=== PATIENT | male | born 1970 | race Caucasian/White ===

== ENCOUNTER 2023-03-02 12:19 | Day surgery (SDC) | payer OTHER ==
[~2023-03-02] VITALS: Ht 177.8 cm; Wt 95.6 kg
[2023-03-02] MEDS ORDERED: INSULANI (13:09)
[2023-03-02] MEDS ORDERED: OMEGA-3 + VITA200 ML (13:09)
[2023-03-02] MEDS ORDERED: METF500 (13:09)
[2023-03-02 15:02] VITALS: BP 116/77
== END 2023-03-02 15:02 | disposition home or self-care (01) ==
LOC: ORSCSDS 12:19
PROVIDERS: Specialist
PROC: 0DBL8ZX Excision of Transverse Colon, Via Natural or Artificial Opening Endoscopic, Diagnostic (ICD-10-PCS; principal; 2023-03-02 13:45)
PROC: 0DBP8ZX Excision of Rectum, Via Natural or Artificial Opening Endoscopic, Diagnostic (ICD-10-PCS; principal; 2023-03-02 13:45)
PROC: 0DBK8ZX Excision of Ascending Colon, Via Natural or Artificial Opening Endoscopic, Diagnostic (ICD-10-PCS; principal; 2023-03-02 13:45)
DX: K92.1 Melena (principal); Z86.010 Personal history of colon polyps; D12.2 Benign neoplasm of ascending colon; K63.5 Polyp of colon; K62.1 Rectal polyp; K64.8 Other hemorrhoids; K57.30 Diverticulosis of large intestine without perforation or abscess without bleeding; E11.9 Type 2 diabetes mellitus without complications; K75.81 Nonalcoholic steatohepatitis (NASH); E78.1 Pure hyperglyceridemia; Z79.4 Long term (current) use of insulin; Z79.84 Long term (current) use of oral hypoglycemic drugs
CPT/HCPCS: 82947; 88305; J2704; J7120

== ENCOUNTER 2024-12-06 14:27 | Inpatient (IN) | payer OTHER ==
[~2024-12-06] VITALS: Ht 180.3 cm; Wt 91.5 kg
[2024-12-06] VITALS (9 sets, daily range): BP systolic 104–135; BP diastolic 60–84
[~2024-12-06 14:27] MED LIST: INSULANI; METF500; OMEGA-3 + VITA200 ML
[2024-12-06] MEDS ORDERED: Rocuronium Bromide 10 MG/ML 5ML Injection IV ONE (14:44)
[2024-12-06] MEDS ORDERED: Phenylephrine HCl 100 MCG/ML-NS 10MLSYR (1MG/10ML) IV ONE (14:44)
[2024-12-06] MEDS ORDERED: Propofol 10mg/ml 20 ml Vial (Procedural) IV ONE (14:44)
[2024-12-06 15:09] LABS: Hematocrit 42.4 % (37.0-53.0); Hemoglobin 15.3 g/dL (13.5-17.5); Mean Corpuscular HGB 31.5 pg (26.0-34.0); Mean Corpuscular HGB Conc 36.1 g/dL (31.5-36.5); Mean Corpuscular Volume 87 fL (80-100); Mean Platelet Volume 10.1 fL (9.1-12.4); Platelet Count 83 K/mm3 (150-400); RDW Standard Deviation 38.5 fL (35.1-46.3); Red Blood Cell Count 4.85 M/mm3 (4.30-5.90); White Blood Cell Count 3.73 K/mm3 (4.00-11.30)
[2024-12-06 15:30] LABS: Albumin, Blood 3.5 g/dL (3.4-5.0); Albumin/Globulin Ratio 0.9 (0.8-1.8); Bilirubin, Total 0.5 mg/dL (0.1-1.0); Calcium, Blood 8.2 mg/dL (8.5-10.1); Creatinine, Blood 0.94 mg/dL (0.60-1.20); Globulin, Blood 4.1 g/dL (2.2-4.0); Potassium, Blood 3.6 mmol/L (3.5-5.5); Total Protein, Blood 7.6 g/dL (6.4-8.2)
[2024-12-06 16:09] LABS: Influenza B, PCR NEGATIVE (NEGATIVE); Resp Syncytial Virus, PCR NEGATIVE (NEGATIVE); SARS-Cov-2 (COVID-19) PCR, MMC NEGATIVE (NEGATIVE)
[2024-12-06 17:07] LABS: BAND PERCENT MAN 6 % (0-8); BASOPHILS PERCENT MAN 0 % (0-2); EOSINOPHILS PERCENT MAN 0 % (0-6); LYMPHOCYTES % ATYPICAL MANUAL 1 % (0-0); LYMPHOCYTES ABSOLUTE MAN 1.11 K/mm3 (0.84-5.20); LYMPHOCYTES PERCENT MAN 29 % (21-46); MONOCYTES ABSOLUTE MAN 0.18 K/mm3 (0.16-1.47); MONOCYTES PERCENT MAN 5 % (4-13); NEUTROPHILS ABSOLUTE MAN 2.42 K/mm3 (1.96-9.15); SEG NEUTROPHILS PERCENT MAN 59 % (41-73); TOTAL CELLS COUNTED 100
[2024-12-06] MEDS ORDERED: NS 1,000 ML IV SCH (18:30)
[2024-12-06] MEDS ORDERED: NS 1,000 ML IV ONE (18:40)
[2024-12-06] MEDS ORDERED: Guaifenesin/Dextromethorphan Syrup 5 ML UDC PO PRN (18:45)
[2024-12-06] MEDS ORDERED: Insulin Glargine-Yfgn 100 Unit/mL 3 ML SYR SC SCH (19:00)
[2024-12-06] MEDS ORDERED: Oseltamivir Phosphate 75 MG Cap PO SCH (19:00)
[2024-12-06 20:13] LABS: PCO2 Arterial 32.2 mmHg (35-45); PO2 Arterial 52.7 mmHg (80-100); pH Blood Arterial 7.53 (7.35-7.45)
[2024-12-06] MEDS ORDERED: CefTRIAXone Sodium 1,000 MG in NS 100 ML IV SCH (20:21)
[2024-12-06] MEDS ORDERED: Vancomycin HCL 2,000 MG in NS 500 ML IV ONE (20:25)
[2024-12-06] MEDS ORDERED: NS 250 ML IV PRN (20:40)
[2024-12-06] MEDS ORDERED: Insulin Human Lispro 100 Units/ML 3ML Syringe SC SCH (21:00)
--- NOTE | 2024-12-06 21:55 | NUR ---
SHIFT SUMMERY PT WAS UNABLE TO MAINTAIN OXYGEN SAT ON AIRVO, RT JOHNNY PLACED PATIENT ON BIPAP AT 100% FIO2. OXYGEN SAT ARE 92% AT THIS TIME.
--- NOTE | 2024-12-06 22:02 | NUR ---
UPDATED PT PER PT REQUEST. APPRECIATIVE OF UPDATE AND CARE PROVIDED.
[2024-12-06] MEDS ORDERED: Ipratropium/Albuterol SulF 2.5-0.5MG/3 ML Amp INH PRN ×2 (22:40→22:45)
[2024-12-06] MEDS ORDERED: Piperacillin/Tazobactam Sod 4.5 GM in NS 100 ML IV SCH (22:56)
[2024-12-06] MEDS ORDERED: MethylPREDNISolone Sod Succ 125 MG Vial IV SCH (23:00)
[2024-12-07] VITALS (36 sets, daily range): BP systolic 97–128; BP diastolic 62–93
[2024-12-07 04:44] LABS: PCO2 Arterial 41.9 mmHg (35-45); PO2 Arterial 59.8 mmHg (80-100); pH Blood Arterial 7.41 (7.35-7.45)
[2024-12-07 05:17] LABS: Hematocrit 36.1 % (37.0-53.0); Hemoglobin 12.9 g/dL (13.5-17.5); Mean Corpuscular HGB 31.9 pg (26.0-34.0); Mean Corpuscular HGB Conc 35.7 g/dL (31.5-36.5); Mean Corpuscular Volume 89 fL (80-100); Mean Platelet Volume 10.5 fL (9.1-12.4); Platelet Count 73 K/mm3 (150-400); RDW Coefficient Variation 12.3 % (11.7-14.2); RDW Standard Deviation 40.6 fL (35.1-46.3); Red Blood Cell Count 4.05 M/mm3 (4.30-5.90); White Blood Cell Count 3.14 K/mm3 (4.00-11.30)
[2024-12-07 05:36] LABS: Albumin, Blood 2.6 g/dL (3.4-5.0); Albumin/Globulin Ratio 0.7 (0.8-1.8); Bilirubin, Total 0.6 mg/dL (0.1-1.0); Bun/Creatinine Ratio 17.1 (12.0-20.0); Calcium, Blood 7.4 mg/dL (8.5-10.1); Creatinine, Blood 0.82 mg/dL (0.60-1.20); Globulin, Blood 3.6 g/dL (2.2-4.0); Magnesium, Blood 2.1 mg/dL (1.6-2.4); Potassium, Blood 3.8 mmol/L (3.5-5.5); Total Protein, Blood 6.2 g/dL (6.4-8.2)
--- NOTE | 2024-12-07 05:49 | NUR ---
SHIFT SUMMERY PT HAS BEEN ALERT AND ORIENTED X 4. HE WAS ADMITTED FROM ER AROUND 2030 LAST NIGHT. QUILES W/GENERALIZED WEAKNESS. HE HAS VOIDED AND HAD A BM. HE WAS INTITALLY ON AIRVO BUT INCREASING OXYGEN DEMANDS REQUIRED HE BE PLACED ON BIPAP. HE HAS NOT BEEN ABLE TO TOLERATE BEING OFF OF THE BIPAP AND DID NOT HAVE A GREAT IMPROVEMENT TO HIS AM ABG. PT WAS EDUCATED ON TREATMENT MODALITIES INCLUDING INTUBATION IF NEEDED. PT HAS BEEN AFEBRILE. BP HAS BEEN WNL, SR ON THE PAPER CONE GRADER. PT IS MAINTAINING OXYGEN SAT ON CURRENT BIPAP SETTING.
[2024-12-07 06:45] LABS: BAND PERCENT MAN 4 % (0-8); BASOPHILS ABSOLUTE MAN 0.03 K/mm3 (0.00-0.23); BASOPHILS PERCENT MAN 1 % (0-2); EOSINOPHILS PERCENT MAN 0 % (0-6); LYMPHOCYTES ABSOLUTE MAN 0.62 K/mm3 (0.84-5.20); LYMPHOCYTES PERCENT MAN 20 % (21-46); MONOCYTES ABSOLUTE MAN 0.06 K/mm3 (0.16-1.47); MONOCYTES PERCENT MAN 2 % (4-13); NEUTROPHILS ABSOLUTE MAN 2.41 K/mm3 (1.96-9.15); SEG NEUTROPHILS PERCENT MAN 73 % (41-73); TOTAL CELLS COUNTED 100
[2024-12-07] MEDS ORDERED: Enoxaparin 40 MG/0.4 ML SYR SC SCH (09:00)
--- NOTE | 2024-12-07 09:23 | NUR ---
AM NOTE... ASSUMED CARE OF PT AT 0700, PT IS A&Ox4, PT IS IS SR IN THE 70'S BP IS STABLE WITH MAPS>65. L/S ARE CLEAR AND DIM T/O VERY DIM IN THE BASES. PT IS ON BPAP AT 14/8 AND 75% WITH O2 SATS>90%. NO SWELLING OR EDEMA IS NOTED. BT PRESENT AND HYPOACTIVE ABD IS SOFT AND NONTENDER TO PALPATION. AT 0845 DR. RAMOS WAS AT THE BEDSIDE TO ASSESS THE PT, AT 0850 BIPAP SETTINGS WERE CHANGED TO 12/7 AND 75% FIO2 PT TOLERATED THIS CHANGE WELL AT 0850 THE PT WAS SWITCHED OVER TO AIRVO 50L AND 85% SO FAR PT IS TOLERATING THE SWITCH WELL. NO CHANGE IN HIS WORK OF BREATHING OR RR.
[2024-12-07] MEDS ORDERED: Vancomycin HCL 1,250 MG in NS 250 ML IV SCH (10:00)
--- NOTE | 2024-12-07 11:06 | NUR ---
PT UPDATE... AT 1027 PT'S AIRVO SETTINGS WERE INCREASED FROM 50L AND 90% TO 60L AND 90% WITH O2 SATS>89%. PT IS TOLERATING THESE SETTINGS WELL SO FAR.
[2024-12-07 11:32] LABS: Triglycerides 279 mg/dL (30-160)
[2024-12-07] MEDS ORDERED: Insulin Human Lispro 100 Units/ML 3ML Syringe SC SCH (17:25)
--- NOTE | 2024-12-07 18:47 | NUR ---
SHIFT SUMMARY... PT HAS BEEN ON THE AIRVO MOST OF THIS SHIFT AT 60L AND 90% WITH O2 SATS 90-94%. PT WAS ABLE TO GET UP TO THE BSC AND HAVE A BM. HE IS CURRENTLY UP IN THE RECLINER CHAIR, PT'S O2 SATS DROPPED DOWN TO LOW 80'S WITH ACTIVITY BUT IMPROVED WITH REST. PT'S BP AND HR HAVE BEEN STABLE T/O THIS SHIFT.
[2024-12-08] VITALS (63 sets, daily range): BP systolic 76–143; BP diastolic 49–88
[2024-12-08 05:25] LABS: Base Excess Venous 3.9 mmol/L; Bicarbonate Venous 27.2 mmol/L (24.0-30.0); PCO2 Venous 43.9 mmHg (38-42); pH Blood Venous 7.42 (7.34-7.37)
[2024-12-08 05:45] LABS: BASOPHILS ABSOLUTE AUTO 0.01 K/mm3 (0.00-0.23); BASOPHILS PERCENT AUTO 0 % (0-2); EOSINOPHILS PERCENT AUTO 0 % (0-6); Hematocrit 35.6 % (37.0-53.0); Hemoglobin 12.4 g/dL (13.5-17.5); Mean Corpuscular HGB 30.8 pg (26.0-34.0); Mean Corpuscular HGB Conc 34.8 g/dL (31.5-36.5); Mean Corpuscular Volume 88 fL (80-100); Mean Platelet Volume 10.4 fL (9.1-12.4); Platelet Count 99 K/mm3 (150-400); RDW Coefficient Variation 12.2 % (11.7-14.2); RDW Standard Deviation 39.4 fL (35.1-46.3); Red Blood Cell Count 4.03 M/mm3 (4.30-5.90); White Blood Cell Count 5.14 K/mm3 (4.00-11.30)
[2024-12-08 05:49] LABS: IMMATURE GRAN ABSOLUTE AUTO 0.03 K/mm3 (0.00-0.10); IMMATURE GRAN PERCENT AUTO 1 % (0-1); LYMPHOCYTES ABSOLUTE AUTO 1.17 K/mm3 (0.84-5.20); LYMPHOCYTES PERCENT AUTO 23 % (21-46); MONOCYTES ABSOLUTE AUTO 0.47 K/mm3 (0.16-1.47); MONOCYTES PERCENT AUTO 9 % (4-13); NEUTROPHILS ABSOLUTE AUTO 3.46 K/mm3 (1.96-9.15); NEUTROPHILS PERCENT AUTO 67 % (41-73)
--- NOTE | 2024-12-08 06:00 | NUR ---
PT HAS HAD AN UNEVENTFUL NIGHT. HE HAS REMAINED ON AIRVO W/OXYGEN SATURATIONS REMAINING GREATER THAN 90%. HE IS ALERT AND ORIENTED X4, HE REPORTS THAT HE FEELS BETTER THIS MORNING. HE HAS BEEN SR ON THE FUR SEWER. BP WNL. HE HAS NO COMPLAINTS OF PAIN OR DISCOMFORT.
[2024-12-08 06:04] LABS: Bun/Creatinine Ratio 25.1 (12.0-20.0); Calcium, Blood 7.6 mg/dL (8.5-10.1); Creatinine, Blood 0.8 mg/dL (0.60-1.20); Potassium, Blood 3.6 mmol/L (3.5-5.5)
[2024-12-08] MEDS ORDERED: LORazepam 2 MG/ML 1ML Injection IV ONE (07:20)
--- NOTE | 2024-12-08 08:10 | NUR ---
AM NOTE... ASSUMED CARE OF PATIENT AT 0700, PATIENT IS A&OX4, PATIENT IS SR IN THE 70'S. BP IS STABLE WITH MAPS >65. PATIENT ON AIRVO 60L AND 90% WITH O2 SATS AT 88%. L/S RALES THROUGHOUT AND DIM. NO EDEMA NOTED. BT PRESENT AND ACTIVE, ABD IS SOFT AND NONTENDER TO PALPITATION. AT 0730 PATIENT WAS SWITCHED OVER TO BIPAP 12/7 AT 75% FiO2 WITH O2 SATS AT 88% AND INCREASED WORK OF BREATHING. SETTINGS WERE CHANGED TO 15/8 AND 80% FiO2 WITH O2 SATS >90%. PATIENT TOLERATED THIS CHANGE WELL. PATIENT GIVEN 2MG ATIVAN TO TOLERATE BIPAP.
[2024-12-08] MEDS ORDERED: Insulin Glargine-Yfgn 100 Unit/mL 3 ML SYR SC SCH (09:00)
[2024-12-08 09:38] LABS: Vancomycin, Trough 7.4 ug/mL (5.0-10.0)
[2024-12-08] MEDS ORDERED: FentaNYL Citrate 50 MCG/ML 2 ML Injection IV ONE (09:55)
[2024-12-08] MEDS ORDERED: propofoL 100 ML IV SCH (09:55)
[2024-12-08] MEDS ORDERED: Vancomycin HCL 1,500 MG in NS 250 ML IV SCH ×2 (10:00→22:00)
--- NOTE | 2024-12-08 10:51 | NUR ---
Inutbation: Dr. Bartlett called to bedside this morning r/t increase work of breathing and oxygen requirements. Dr. Rose then had extensive conversation with patient and his . [facility] to intubate patient. 1004 50mcg fentanyl 1005 50mcg Neosyephrine 1008 80mg propofol 1009 50mg rocuronium 1010 40mg propofol 1011 ett placed, + etCO2, + breath sounds bilateral, 7.5 tube 25 at teeth.
[2024-12-08] MEDS ORDERED: FentaNYL Citrate 50 MCG/ML 2 ML Injection ONE (10:54)
[2024-12-08] MEDS ORDERED: FentaNYL Citrate 50 MCG/ML 2 ML Injection IV PRN (11:00)
[2024-12-08] MEDS ORDERED: fentaNYL citrate 1,000 MCG in NS 80 ML IV SCH (11:20)
[2024-12-08] MEDS ORDERED: Rocuronium Bromide 10 MG/ML 5ML Injection IV ONE (11:20)
[2024-12-08] MEDS ORDERED: Hydrogen Peroxide 1.5 % Solution MT SCH (12:00)
[2024-12-08] MEDS ORDERED: Docusate Sodium Liquid 100 MG UDC PT PRN (12:05)
[2024-12-08] MEDS ORDERED: Magnesium Hydroxide Conc 10 ML UDC PT PRN (12:05)
[2024-12-08] MEDS ORDERED: Bisacodyl 10 MG Supp PR PRN (12:05)
--- NOTE | 2024-12-08 15:02 | NUR ---
PATIENT UPDATE... AFTER CHEST XRAY ET TUBE WAS ADVANCED BY RT AT BEDSIDE. ET TUBE NOW 27 @ TOP TEETH. AT APPROX 1100 VENT SETTINGS AC/VC 16/600/12 100%. AT 1230 VENT SETTINGS WERE CHANGED TO AC/VC 6/600/14 80% D/T O2 SATS IN THE LOW 90S.
--- NOTE | 2024-12-08 17:48 | NUR ---
SHIFT SUMMARY... PATIENT INTUBATED AND SEDATED. PROPOFOL 40 MCG/KG/MIN AND FENTANYL DRIP 50 MCG/HR. VENT SETTINGS AC/VC 16/600/14 70%. HR AND BP STABLE. LEVOPHED CONTINUES TO BE OFF. TEMP CATHETER PATENT AND DRAINING YELLOW URINE TO GRAVITY. NO BM TODAY.
[2024-12-08] MEDS ORDERED: Insulin Human Lispro 100 Units/ML 3ML Syringe SC SCH (18:00)
--- NOTE | 2024-12-08 18:19 | NUR ---
STUDENT RN CHARTING.... THIS RN HAS ASSESSED AND AGREES WITH ALL OF STUDENT RN YRN'S CHARTING AND ASSESSMENTS.
[2024-12-08] MEDS ORDERED: Cetylpyridinium Chloride 1 EA MISC MT SCH (20:00)
[2024-12-09] VITALS (53 sets, daily range): BP systolic 92–151; BP diastolic 56–117
[2024-12-09 05:27] LABS: Hematocrit 34.6 % (37.0-53.0); Mean Corpuscular HGB 31.4 pg (26.0-34.0); Mean Corpuscular HGB Conc 34.7 g/dL (31.5-36.5); Mean Corpuscular Volume 91 fL (80-100); Mean Platelet Volume 10.4 fL (9.1-12.4); Platelet Count 117 K/mm3 (150-400); RDW Coefficient Variation 12.8 % (11.7-14.2); RDW Standard Deviation 42.5 fL (35.1-46.3); Red Blood Cell Count 3.82 M/mm3 (4.30-5.90); White Blood Cell Count 5.74 K/mm3 (4.00-11.30)
[2024-12-09 05:47] LABS: Magnesium, Blood 2.9 mg/dL (1.6-2.4); Phosphorus, Blood 2.4 mg/dL (2.5-4.9)
[2024-12-09 06:25] LABS: Bun/Creatinine Ratio 28.3 (12.0-20.0); Calcium, Blood 7.7 mg/dL (8.5-10.1); Creatinine, Blood 0.99 mg/dL (0.60-1.20); Potassium, Blood 3.1 mmol/L (3.5-5.5)
--- NOTE | 2024-12-09 06:41 | NUR ---
SHIFT SUMMERY PT REMAINS INTUBATED AND SEDATED W/PROPOFOL AND FENTANYL. TF INFUSING VIA OG TUBE. ROSS CATHETER INTACT PATENT AND DRAINING TO GRAVITY. PT HAS BEEN SR ON THE MEDICAL DRIVER. AFEBRILE. BP WNL W/MAP >65. COUGHING AT TIMES W/MINIMAL TO NO SECRETIONS WHEN ETT SUCTIONED. SEDATION INCREASED FOR VENT COMPLIANCE, SEE [facility].
[2024-12-09 06:49] LABS: BASOPHILS PERCENT MAN 0 % (0-2); EOSINOPHILS PERCENT MAN 0 % (0-6); LYMPHOCYTES % ATYPICAL MANUAL 1 % (0-0); LYMPHOCYTES ABSOLUTE MAN 2.18 K/mm3 (0.84-5.20); LYMPHOCYTES PERCENT MAN 37 % (21-46); MONOCYTES ABSOLUTE MAN 0.22 K/mm3 (0.16-1.47); MONOCYTES PERCENT MAN 4 % (4-13); MYELOCYTE ABSOLUTE MAN 0.05 K/mm3 (0.00-0.00); MYELOCYTE PERCENT MAN 1 % (0-0); NEUTROPHILS ABSOLUTE MAN 3.27 K/mm3 (1.96-9.15); SEG NEUTROPHILS PERCENT MAN 57 % (41-73); TOTAL CELLS COUNTED 100
[2024-12-09] MEDS ORDERED: Potassium Phosphate Dibasic 20 MM in Dextrose 5% 500 ML IV STA (06:50)
[2024-12-09] MEDS ORDERED: Insulin Glargine-Yfgn 100 Unit/mL 3 ML SYR SC SCH (09:00)
[2024-12-09] MEDS ORDERED: Multivitamins-Minerals Liquid 15 ML Oral Syringe PT SCH (09:00)
[2024-12-09] MEDS ORDERED: Thiamine HCl 100 MG Tab PT SCH (09:00)
[2024-12-09] MEDS ORDERED: LORazepam 2 MG/ML 1ML Injection IV PRN (11:20)
[2024-12-09 14:20] LABS: Vancomycin, Trough 28.7 ug/mL (5.0-10.0)
--- NOTE | 2024-12-09 17:03 | NUR ---
TRANSFER TO ICU 8 PT TRANSFERED FROM ICU 14 TO ICU 8 AT THIS TIME WITH RT ASSISTANCE. ALL PT BELONGINGS AND MEDS MOVED WITH PT. NO ACUTE EVENTS.
--- NOTE | 2024-12-09 17:23 | NUR ---
SHIFT SUMMARY NO ACUTE CHANGES THIS SHIFT. PT REMAINS INTUBATED AND SEDATED. VENT SETTINGS REMAIN AC 16, TV 600, PEEP 14, FIO2 60%. RT ATTEMPTED TO WEAN PEEP DOWN TO 12 THIS SHIFT. PT DID NOT TOLERATE WITH SPO2 STAYING HIGH 80'S. PT WITH MINIMAL ETT AND ORAL SECRETIONS THIS SHIFT. PT SEDATED WITH PROPOFOL AT 50 MCG/KG/MIN AND FENTANYL GTT AT 75 MCG/HR. PT ROUSES TO NOXIOUS STIMULI, BUT DOES NOT FOLLOW COMMANDS OR OPEN EYES. PICC TO ALBERTO C/D/I, NS INFUSING TKO. PG TO CATIA SALINE LOCKED. OGT IN PLACE WITH TF INFUSING AT NEW 50 ML/HR GOAL RATE. ROSS TEMP PROBE REMAINS IN PLACE WITH DARK YELLOW URINE OUTPUT NOTED. SBW RESTRAINTS REMAIN IN PLACE. VITAL SIGNS STABLE. MULTIPLE FAMILY MEMBERS IN AND OUT THIS SHIFT. PT SPOUSE AT BEDSIDE MOST OF THE DAY. WILL CONTINUE TO MONITOR AND REPORT OFF TO ONCOMING RN.
--- NOTE | 2024-12-09 20:31 | NUR ---
ASSUME CARE: BEDSIDE REPORT RECIEVED FROM [facility] RN. PT INTUBATED AND SEDATED, RASS -1. PT ABLE TO FOLLOW COMMANDS AND SHAKE HEAD TO YES OR NO QUESTIONS. PROPOFOL AT 50 MCG/KG/MIN, CPOT 0, PT SHAKES HEAD NO TO PAIN, FENTANYL AT 75 MCG/HR. SBP 100s, MAP>65. MONITOR SHOWS SINUS RHYTHM, RATE 70s. SPO2>90% ON VENT, SETTINGS ACVC 16/600/14/50%. OGT PATENT INFUSING TF AT GOAL. TEMP ROSS PATENT DRAINING YELLOW URINE TO GRAVITY. WILL UPDATE NEEDED.
[2024-12-09] MEDS ORDERED: Lactobacil 2-S.Thermo-Bifido 1 1 Cap PO SCH (21:00)
[2024-12-09] MEDS ORDERED: Vancomycin HCL 1,500 MG in NS 250 ML IV SCH (22:00)
[2024-12-10] VITALS (93 sets, daily range): BP systolic 105–186; BP diastolic 61–109
[2024-12-10 04:11] LABS: Base Excess Venous 4.3 mmol/L; Bicarbonate Venous 28.6 mmol/L (24.0-30.0)
[2024-12-10 04:12] LABS: pH Blood Venous 7.55 (7.34-7.37)
[2024-12-10 04:52] LABS: BASOPHILS ABSOLUTE AUTO 0.01 K/mm3 (0.00-0.23); BASOPHILS PERCENT AUTO 0 % (0-2); EOSINOPHILS ABSOLUTE AUTO 0.02 K/mm3 (0.00-0.68); EOSINOPHILS PERCENT AUTO 0 % (0-6); Hematocrit 33.3 % (37.0-53.0); Hemoglobin 11.5 g/dL (13.5-17.5); IMMATURE GRAN ABSOLUTE AUTO 0.13 K/mm3 (0.00-0.10); IMMATURE GRAN PERCENT AUTO 3 % (0-1); LYMPHOCYTES ABSOLUTE AUTO 1.13 K/mm3 (0.84-5.20); LYMPHOCYTES PERCENT AUTO 23 % (21-46); MONOCYTES PERCENT AUTO 8 % (4-13); Mean Corpuscular HGB 31.5 pg (26.0-34.0); Mean Corpuscular HGB Conc 34.5 g/dL (31.5-36.5); Mean Corpuscular Volume 91 fL (80-100); NEUTROPHILS ABSOLUTE AUTO 3.16 K/mm3 (1.96-9.15); NEUTROPHILS PERCENT AUTO 65 % (41-73); Platelet Count 124 K/mm3 (150-400); RDW Standard Deviation 43.7 fL (35.1-46.3); Red Blood Cell Count 3.65 M/mm3 (4.30-5.90); White Blood Cell Count 4.85 K/mm3 (4.00-11.30)
[2024-12-10 05:07] LABS: Bun/Creatinine Ratio 21.4 (12.0-20.0); Calcium, Blood 7.6 mg/dL (8.5-10.1); Creatinine, Blood 1.03 mg/dL (0.60-1.20); Magnesium, Blood 2.4 mg/dL (1.6-2.4); Phosphorus, Blood 2.8 mg/dL (2.5-4.9); Potassium, Blood 3.1 mmol/L (3.5-5.5)
[2024-12-10] MEDS ORDERED: Potassium Chl 20MEQ/Water100ML 100 ML IV ONE (05:45)
[2024-12-10] MEDS ORDERED: Calcium Chloride 10% 2,000 MG in NS 100 ML IV ONE (05:50)
--- NOTE | 2024-12-10 05:59 | NUR ---
SHIFT SUMMARY: PT INTUBATED AND SEDATED, RASS -2, PROPOFOL GTT AT 50 MCG/KG/MIN. CPOT 0, FENTANYL GTT AT 75 MCG/HR. VSS, MONITOR SHOWS SINUS QUYNH TO SINUS RYTHM, RATE 55-60s. NO OTHER CHANGES SINCE ASSUME CARE NOTE. WILL REPORT TO ONCOMING RN.
--- NOTE | 2024-12-10 07:00 | NUR ---
ASSUMPTION OF CARE PT RECEIVING PROPOFOL 50MCG/KG/MIN AND FENTANYL 75MCG/HR. HE IS INTUBATED WITH VENT SETTINGS AC/VC 12/500/14/50%. RASS -3. TUBE FEEDING INFUSING VIA OGT AT GOAL RATE. SINUS ON MONITOR WITH RATE IN 60S. MAP >65. ROSS PATENT AND DRAINING TO GRAVITY. AFEBRILE.
--- NOTE | 2024-12-10 11:00 | NUR ---
SEDATION VACATION FENTANYL TITRATED TO 50MCG/HR AND PROPOFOL TO 15MCG/KG/MIN. PT BEGINS COUGHING, SITTING UP IN BED, AND PULLING AGAINST RESTRAINTS. PT REORIENTED BY STAFF AND SPOUSE. PT MEDICATED WITH PRN FENTANYL FOR VENT COMPLIANCE. PROPOFOL TITRATED UP. ONCE COUGHING SUBSIDED, RASS -1. PT ABLE TO ANSWER QUESTIONS BY NODDING/SHAKING HEAD AND FOLLOW SIMPLE COMMANDS. ASKED PT IF HIS SPOUSE BRENDA CAN MAKE HIS HEALTHCARE DECISIONS TO WHICH HE NODS "YES" AND GIVES A THUMBS UP. PT OCCASIONALLY GRIMACING, SEDATION TITRATED UP FOR COMFORT.
--- NOTE | 2024-12-10 18:44 | NUR ---
SHIFT SUMMARY PT RECEIVING PROPOFOL 50MCG/KG/MIN AND FENTANYL 50MCG/HR. HE REMAINS INTUBATED WITH VENT SETTINGS AC/VC 12/500/10/50%. CURRENT RASS -3. TUBE FEEDING INFUSING VIA OGT AT GOAL RATE. SINUS ON MONITOR WITH RATE IN 60S. BP STABLE WITH MAP >65. TEMP ROSS PATENT AND DRAINING TO GRAVITY. FAMILY AT BEDSIDE THROUGHOUT THE DAY AND UPDATED.
--- NOTE | 2024-12-10 20:28 | NUR ---
ASSUME CARE: BEDSIDE REPORT RECIEVED FROM [facility] RN. PT INTUBATED AND SEDATED, RASS -1. PROPOFOL GTT AT 55 MCG/KG/MIN. CPOT 0, FENTANYL DECREASED TO 50 MCG/HR. PT ABLE TO SHAKE HEAD YES AND NO TO QUESTIONS AND FOLLOW COMMANDS. PT DENIES PAIN OR DISCOMFORT. SBP 100s, MAP>65. MONITOR SHOWS SINUS RHYTHM, RATE 60s. SPO2>90% ON VENT, SETTINGS VC 12/500/10/50%. OGT PATENT INFUSING TF. TEMP ROSS PATENT DRAINING TO GRAVITY. WILL UPDATE NEEDED.
[2024-12-11] VITALS (57 sets, daily range): BP systolic 107–146; BP diastolic 61–102
[2024-12-11 03:43] LABS: BASOPHILS ABSOLUTE AUTO 0.03 K/mm3 (0.00-0.23); BASOPHILS PERCENT AUTO 1 % (0-2); EOSINOPHILS ABSOLUTE AUTO 0.09 K/mm3 (0.00-0.68); EOSINOPHILS PERCENT AUTO 2 % (0-6); Hematocrit 33.3 % (37.0-53.0); Hemoglobin 11.2 g/dL (13.5-17.5); IMMATURE GRAN ABSOLUTE AUTO 0.27 K/mm3 (0.00-0.10); IMMATURE GRAN PERCENT AUTO 5 % (0-1); LYMPHOCYTES PERCENT AUTO 17 % (21-46); MONOCYTES ABSOLUTE AUTO 0.62 K/mm3 (0.16-1.47); MONOCYTES PERCENT AUTO 11 % (4-13); Mean Corpuscular HGB 30.9 pg (26.0-34.0); Mean Corpuscular HGB Conc 33.6 g/dL (31.5-36.5); Mean Corpuscular Volume 92 fL (80-100); Mean Platelet Volume 10.3 fL (9.1-12.4); NEUTROPHILS ABSOLUTE AUTO 3.83 K/mm3 (1.96-9.15); NEUTROPHILS PERCENT AUTO 66 % (41-73); Platelet Count 151 K/mm3 (150-400); RDW Coefficient Variation 13.1 % (11.7-14.2); RDW Standard Deviation 44.1 fL (35.1-46.3); Red Blood Cell Count 3.62 M/mm3 (4.30-5.90); White Blood Cell Count 5.84 K/mm3 (4.00-11.30)
[2024-12-11 03:55] LABS: Magnesium, Blood 2.1 mg/dL (1.6-2.4)
[2024-12-11 03:56] LABS: Bun/Creatinine Ratio 17.9 (12.0-20.0); Calcium, Blood 8.4 mg/dL (8.5-10.1); Creatinine, Blood 0.95 mg/dL (0.60-1.20); Phosphorus, Blood 3.2 mg/dL (2.5-4.9); Potassium, Blood 3.3 mmol/L (3.5-5.5)
[2024-12-11] MEDS ORDERED: Potassium Chloride 40 MEQ in NS 250 ML IV ONE (04:55)
--- NOTE | 2024-12-11 05:52 | NUR ---
SHIFT SUMMARY: PT INTUBATED AND SEDATED, RASS -2. PROPOFOL AT 55 MCG/KG/MIN. ATTEMPTED TO DECREASE SEDATION T/O THE NIGHT, HOWEVER PT SEEMED TO NOT TOLERATE IT PT WOULD COUGH AND BITE DOWN ON ETT. FENTANYL GTT AT 50 MCG/HR. VSS, SPO2>90% ON VENT, SETTINGS VC 12/500/10/60%. PT HAS THICK GALLEGOS SECRETIONS. OGT PATENT INFUSING TF. ROSS PATENT DRAINING DARK YELLOW URINE TO GRAVITY. WILL REPORT TO ONCOMING RN.
[2024-12-11 06:31] LABS: Base Excess Venous 6.3 mmol/L; Bicarbonate Venous 29.5 mmol/L (24.0-30.0); pH Blood Venous 7.46 (7.34-7.37)
--- NOTE | 2024-12-11 07:00 | NUR ---
ASSUMPTION OF CARE PT RECEIVING PROPOFOL 50MCG/KG/MIN AND FENTANYL 50MCG/HR. HE REMAINS INTUBATED WITH VENT SETTINGS AC/VC 12/400/10/50%. RASS -3. TUBE FEEDING INFUSING VIA OGT AT GOAL RATE. SINUS ON MONITOR WITH RATE IN 60S-70S. MAP >65. AFEBRILE. TEMP ROSS PATENT AND DRAINING TO GRAVITY.
[2024-12-11] MEDS ORDERED: Insulin Glargine-Yfgn 100 Unit/mL 3 ML SYR SC SCH (09:00)
[2024-12-11 10:17] LABS: Vancomycin, Trough 14.9 ug/mL (5.0-10.0)
[2024-12-11] MEDS ORDERED: Vancomycin HCL 1,000 MG in NS 250 ML IV SCH (12:00)
--- NOTE | 2024-12-11 18:01 | NUR ---
SHIFT SUMMARY PT RECEIVING PROPOFOL 50MCG/KG/MIN AND FENTANYL 50MCG/HR. HE REMAINS INTUBATED WITH VENT SETTINGS AC/VC 12/500/10/55%. RASS -3. TUBE FEEDING GOAL DECREASED THIS SHIFT TO 30ML/HR. PT HAD 1 BM THIS SHIFT. SINUS ON MONITOR WITH RATE IN 60S-70S. BP STABLE THROUGHOUT THE DAY WITH MAP >65. TEMP ROSS PATENT AND DRAINING TO GRAVITY. FAMILY AT BEDSIDE THROUGHOUT THE DAY AND UPDATED.
[2024-12-11] MEDS ORDERED: Protein Supplement 30 ML UD PT SCH (21:00)
--- NOTE | 2024-12-11 21:09 | NUR ---
ASSUME CARE: BEDSIDE REPORT RECIEVED FROM [facility] RN. PT INTUBATED AND SEDATED, RASS -3. PROPOFOL GTT AT 50 MCG/KG/MIN, FENTANYL GTT AT 50 MCG/HR. PT ABLE TO SHAKE HEAD YES AND NO TO QUESTIONS AND FOLLOW COMMANDS. PT VERY AGITATED WITH ORAL CARE AND ADLs, WILL COUGH AND BITE DOWN ON TUBE. VSS. SP02>90% ON VENT, SETTINGS VC 12/500/10/55%. OGT PATENT INFUSING TF AT GOAL. ROSS PATENT DRAINING TO GRAVITY. WILL UPDATE NEEDED.
[2024-12-12] VITALS (25 sets, daily range): BP systolic 116–151; BP diastolic 66–80
[2024-12-12 03:55] LABS: BASOPHILS ABSOLUTE AUTO 0.02 K/mm3 (0.00-0.23); BASOPHILS PERCENT AUTO 0 % (0-2); EOSINOPHILS ABSOLUTE AUTO 0.19 K/mm3 (0.00-0.68); EOSINOPHILS PERCENT AUTO 3 % (0-6); Hematocrit 32.2 % (37.0-53.0); Hemoglobin 10.9 g/dL (13.5-17.5); IMMATURE GRAN ABSOLUTE AUTO 0.32 K/mm3 (0.00-0.10); IMMATURE GRAN PERCENT AUTO 5 % (0-1); LYMPHOCYTES ABSOLUTE AUTO 1.06 K/mm3 (0.84-5.20); LYMPHOCYTES PERCENT AUTO 18 % (21-46); MONOCYTES ABSOLUTE AUTO 0.73 K/mm3 (0.16-1.47); MONOCYTES PERCENT AUTO 12 % (4-13); Mean Corpuscular HGB 31.7 pg (26.0-34.0); Mean Corpuscular HGB Conc 33.9 g/dL (31.5-36.5); Mean Corpuscular Volume 94 fL (80-100); Mean Platelet Volume 9.7 fL (9.1-12.4); NEUTROPHILS ABSOLUTE AUTO 3.66 K/mm3 (1.96-9.15); NEUTROPHILS PERCENT AUTO 61 % (41-73); Platelet Count 176 K/mm3 (150-400); RDW Coefficient Variation 13.2 % (11.7-14.2); RDW Standard Deviation 45.4 fL (35.1-46.3); Red Blood Cell Count 3.44 M/mm3 (4.30-5.90); White Blood Cell Count 5.98 K/mm3 (4.00-11.30)
[2024-12-12 04:16] LABS: Bun/Creatinine Ratio 15.9 (12.0-20.0); Calcium, Blood 7.6 mg/dL (8.5-10.1); Creatinine, Blood 0.94 mg/dL (0.60-1.20); Phosphorus, Blood 3.2 mg/dL (2.5-4.9); Potassium, Blood 3.5 mmol/L (3.5-5.5)
[2024-12-12 05:05] LABS: BAND PERCENT MAN 2 % (0-8); BASOPHILS ABSOLUTE MAN 0.05 K/mm3 (0.00-0.23); BASOPHILS PERCENT MAN 1 % (0-2); EOSINOPHILS ABSOLUTE MAN 0.05 K/mm3 (0.00-0.68); EOSINOPHILS PERCENT MAN 1 % (0-6); LYMPHOCYTES % ATYPICAL MANUAL 1 % (0-0); LYMPHOCYTES ABSOLUTE MAN 1.01 K/mm3 (0.84-5.20); LYMPHOCYTES PERCENT MAN 16 % (21-46); METAMYELOCYTE ABSOLUTE MAN 0.17 K/mm3 (0.00-0.00); METAMYELOCYTE PERCENT MAN 3 % (0-0); MONOCYTES ABSOLUTE MAN 0.53 K/mm3 (0.16-1.47); MONOCYTES PERCENT MAN 9 % (4-13); MYELOCYTE ABSOLUTE MAN 0.05 K/mm3 (0.00-0.00); MYELOCYTE PERCENT MAN 1 % (0-0); NEUTROPHILS ABSOLUTE MAN 4.06 K/mm3 (1.96-9.15); SEG NEUTROPHILS PERCENT MAN 66 % (41-73); TOTAL CELLS COUNTED 100
--- NOTE | 2024-12-12 05:09 | NUR ---
SHIFT SUMMARY: PT INTUBATED AND SEDATED, RASS +2 TO -3. PROFOFOL AT 50 MCG/KG/MIN, FENTANYL AT 50 MCG/HR. PT WILL COUGH AND BECOME AGITATED WITH CARE. VSS. SPO2>90% ON VENT, SETTINGS VC 12/500/10/60%. MONITOR SHOWS SINUS RHYTHM, RATE 60s. OGT PATENT INFUSING TF. TEMP ROSS PATENT DRAINING TO GRAVITY. WILL REPORT TO ONCOMING RN.
--- NOTE | 2024-12-12 10:36 | NUR ---
START OF SHIFT: ASSUMED CARE AT START OF SHIFT (0700). PT IS LYING IN BED, INTUBATED AND SEDATED, PROPFOL DRIP AT 50MCG/HR. THEY HAVE SOFT WRSIT RESTRAINTS IN UPPER EXTREMITIES. ARE UNABLE TO ANSWER QUESTION AT THIS TIME BUT WILL RESPOND TO PAINFUL STIMULI. THEY ARE ON A VENT, ACVC-12 VT-500 PEEP-10 FIO2-60%. THEIR LUNG SOUNDS ARE CLEAR IN THE UPPER AND DIMINISHED IN THE BASES BILATERALLY, SPO2 >94%. SINUS RYTHM, WITH SBP 110'S MAP>65. THEY HAVE A TEMP ROSS CATH IN PLACE THAT IS DRAIN TO GRAVITY. PICC LINE IN LUE AND POWERGLIDE IN RUE. TUBE FEEDING VIA OG TUBE. PT IS ON A FENTANYL GTT AND PUSHES FOR PAIN. LINES, CORDS, AND TUBES PLACED OUT OF THE WAY. CALL LIGHT PLACED WITHIN REACH. WILL CONTINUE TO MONITOR.
--- NOTE | 2024-12-12 18:21 | NUR ---
SHIFT SUMMARY: PT IS DOING WELL, LYING IN BED, THEY ARE STILL INTUBATED AND SEDATED. THEIR PROPOFOL HAS BEEN TITRATED DOWN TO 30MCG/HR. THEY ARE AROUSABLE TO VOICE AND ABLE TO FOLLOW SIMPLE COMMANDS. COUGHING EPISODES THROUGHOUT THE DAY, ETT TUBE SUCTIONING AND ORAL SUCTIONING DOES HELP. THICK SECRETIONS SUCTIONED FROM ETT TUBE. DURING REPOSTIONTHE PT CAN BE AGITATED LEADING TO COUGHING EPISODES AND THEY WILL TRY GRAB AT THE ETT TUBE. ANTIVAN WAS GIVEN AND T HELPED RELAXED THE PT. THE FIO2 ON THE VENT WAS INCREASED TO 70%. THEY HAVE REMAINED IN SINUS RYTHM WITH SBP 110 - 130'S MAP >65, AND HR: 60-80'S. POWER GLIDE IN RUE FLUSHES WELL BUT NO BLOOD RETURN. PICC LINE IN RUE. ROSS CATHETER IN PLACED AND DRAINING TO GRAVITY. LINES, CORDS, AND TUBES WERE PLACED OUT OF THE WAY. CALL LIGHT PLACED WITHIN REACH.
--- NOTE | 2024-12-12 21:16 | NUR ---
ASSUME CARE: BEDSIDE REPORT RECIEVED FROM [facility] RN. PT INTUBATED AND SEDATED, RASS -2, PROPOFOL GTT AT 30 MCG/KG/MIN, FENTANYL AT 50 MCG/HR. VSS, SPO2>90% ON VENT, SETTINGS VC 12/500/10/60%. CHEST PERCUSSION AT START OF SHIFT. OGT PATENT INFUSING TF. TEMP ROSS PATENT DRAINING TO GRAVITY. WILL UPDATE NEEDED.
[2024-12-13] VITALS (39 sets, daily range): BP systolic 115–175; BP diastolic 62–95
[2024-12-13 03:44] LABS: Hematocrit 31.8 % (37.0-53.0); Hemoglobin 10.7 g/dL (13.5-17.5); Mean Corpuscular HGB 31.5 pg (26.0-34.0); Mean Corpuscular HGB Conc 33.6 g/dL (31.5-36.5); Mean Corpuscular Volume 94 fL (80-100); Mean Platelet Volume 9.5 fL (9.1-12.4); Platelet Count 212 K/mm3 (150-400); RDW Coefficient Variation 12.9 % (11.7-14.2); RDW Standard Deviation 44.3 fL (35.1-46.3); White Blood Cell Count 5.78 K/mm3 (4.00-11.30)
[2024-12-13 04:06] LABS: BAND PERCENT MAN 3 % (0-8); BASOPHILS PERCENT MAN 0 % (0-2); EOSINOPHILS ABSOLUTE MAN 0.11 K/mm3 (0.00-0.68); EOSINOPHILS PERCENT MAN 2 % (0-6); LYMPHOCYTES % ATYPICAL MANUAL 3 % (0-0); LYMPHOCYTES PERCENT MAN 11 % (21-46); METAMYELOCYTE ABSOLUTE MAN 0.05 K/mm3 (0.00-0.00); METAMYELOCYTE PERCENT MAN 1 % (0-0); MONOCYTES ABSOLUTE MAN 0.75 K/mm3 (0.16-1.47); MONOCYTES PERCENT MAN 13 % (4-13); MYELOCYTE ABSOLUTE MAN 0.17 K/mm3 (0.00-0.00); MYELOCYTE PERCENT MAN 3 % (0-0); NEUTROPHILS ABSOLUTE MAN 3.87 K/mm3 (1.96-9.15); SEG NEUTROPHILS PERCENT MAN 64 % (41-73); TOTAL CELLS COUNTED 100
[2024-12-13 04:18] LABS: Magnesium, Blood 2.3 mg/dL (1.6-2.4)
[2024-12-13 04:19] LABS: Albumin/Globulin Ratio 0.5 (0.8-1.8); Bilirubin, Total 0.4 mg/dL (0.1-1.0); Calcium, Blood 8.1 mg/dL (8.5-10.1); Creatinine, Blood 0.84 mg/dL (0.60-1.20); Globulin, Blood 4.2 g/dL (2.2-4.0); Phosphorus, Blood 2.3 mg/dL (2.5-4.9); Potassium, Blood 3.4 mmol/L (3.5-5.5); Total Protein, Blood 6.2 g/dL (6.4-8.2)
[2024-12-13] MEDS ORDERED: Potassium Phosphate Dibasic 20 MM in Dextrose 5% 500 ML IV ONE (05:30)
--- NOTE | 2024-12-13 05:32 | NUR ---
SHIFT SUMMARY: PT INTUBATED AND SEDATED, RASS +1 TO -2. PROPOFOL GTT REMAINS AT 30 MCG/KG/MIN, FENTANYL AT 50 MCG/HR. PT WILL HAVE COUGHING FITS AND SHAKE HEAD BACK AND FORTH, BUT IS ABLE TO RECOVER. SPO2>90% ON VENT, SETTINGS VC 12/500/10/65%. INCREASE IN FIO2 PT DESAT 88-89% DESPITE REPOSITIONING AND SUCTIONING, RT NOTIFIED. ATIVAN NEEDED FOR ADJUCT SEDATION AT TIMES. ALL OTHER VSS. OGT PATENT INFUSING TF. TEMP ROSS PATENT DRAINING DARK YELLOW URINE TO GRAVITY. WILL REPORT TO ONCOMING RN.
--- NOTE | 2024-12-13 08:32 | NUR ---
ASSUMPTION OF CARE: ASSUMED CARE AT START OF SHIFT (0700). PT IS LYING IN BED INTUBATE AND SEDATED. PROPOFOL RUNNING AT 30MCG/HR. VENT: 12/500/10/65%. LUNG SOUNDS ARE CLEAR AND DIMINSHED IN THE BASES BILATERALLY SPO2>94%. COUGH, THICK SECRETIONS SUCTIONED FROM ETT TUBE AMD CLEAR SECRETIONS SUCTIONED FROM MOUTH. PT IS IN SINUS RYTHM, WITH SYSTOLIC BP: 120'S, MAP >65, HR: 60'S. PICC LINE IN RUE AND POWER GLIDE IN LUE. TEMP ROSS CATHETER IN PLACE AND DRAINING TO GRAVITY. TUBE FEEDING VIA OG TUBE. LINES, CORDS, AND TUBES PLACED OUT OF THE WAY. CALL LIGHT PLACED WITHIN REACH. WILL CONTINUE TO MONITOR.
[2024-12-13] MEDS ORDERED: Pantoprazole Sodium 40 MG Injection IV SCH (12:15)
--- NOTE | 2024-12-13 18:20 | NUR ---
SHIFT SUMMARY: PT IS LYING IN BED, INTUBATED AND SEDATED. VENT SETTINGS: 12/500/10/65%. PT IS ALERT AND ABLE TO FOLLOW SIMPLE COMMANDS. LUNG SOUNDS ARE CLEAR AND DIMINISHED IN THE BASES BILATERALLY. THEY RECEIVED 2 ROUNDS OF PERCUSSIVE THERAPY TODAY, THERAPY DID NOT HELP WITH VERY THICK SECRETIONS FROM LUNGS AND THE PT BECAME VERY RESTLESTLESS DURING THERAPY, DOCOTOR DECIDED TO DC THERAPY. PT HAD MULTPLE EPISODES OF COUGHING THROUGH OUT THE DAY AND THEY WERE ABLE TO SETTLE DOWN ON THEIR OWN. THEY REMAINED IN SINUS RYTHM, SYSTOLIC BP 130-150'S MAP>65 HR 60'S. PICC LINE IN RUE AND POWERGLIDE IN LUE. TEMP ROSS CATHER IN PLACE AND DRAINING TO GRAVITY. LINES, CORDS, AND TUBES OUT OF REACH.
--- NOTE | 2024-12-13 20:25 | NUR ---
PROVIDER: CALL PLACED TO HOSPITALIST SAMAN TO VERIFY GLARGINE ORDER FOR THIS EVENING. PT BLOOD SUGAR 129 PER FINGER STICK. ORDER FOR 35 UNITS GLARGINE. PROVIDER OKAYED THIS RN TO GO AHEAD AND GIVE THE FULL DOSE. PT ON 30 ML/HR OF VHP.
[2024-12-13] MEDS ORDERED: Insulin Glargine-Yfgn 100 Unit/mL 3 ML SYR SC SCH (21:00)
[2024-12-14] VITALS (42 sets, daily range): BP systolic 115–187; BP diastolic 59–96
[2024-12-14 03:47] LABS: BASOPHILS ABSOLUTE AUTO 0.02 K/mm3 (0.00-0.23); BASOPHILS PERCENT AUTO 0 % (0-2); EOSINOPHILS ABSOLUTE AUTO 0.13 K/mm3 (0.00-0.68); EOSINOPHILS PERCENT AUTO 2 % (0-6); Hematocrit 29.8 % (37.0-53.0); Hemoglobin 10.1 g/dL (13.5-17.5); IMMATURE GRAN ABSOLUTE AUTO 0.22 K/mm3 (0.00-0.10); IMMATURE GRAN PERCENT AUTO 4 % (0-1); LYMPHOCYTES ABSOLUTE AUTO 0.91 K/mm3 (0.84-5.20); LYMPHOCYTES PERCENT AUTO 17 % (21-46); MONOCYTES ABSOLUTE AUTO 1.03 K/mm3 (0.16-1.47); MONOCYTES PERCENT AUTO 19 % (4-13); Mean Corpuscular HGB 30.7 pg (26.0-34.0); Mean Corpuscular HGB Conc 33.9 g/dL (31.5-36.5); Mean Corpuscular Volume 91 fL (80-100); Mean Platelet Volume 9.2 fL (9.1-12.4); NEUTROPHILS ABSOLUTE AUTO 3.08 K/mm3 (1.96-9.15); NEUTROPHILS PERCENT AUTO 57 % (41-73); Platelet Count 208 K/mm3 (150-400); RDW Coefficient Variation 12.8 % (11.7-14.2); RDW Standard Deviation 43.1 fL (35.1-46.3); Red Blood Cell Count 3.29 M/mm3 (4.30-5.90); White Blood Cell Count 5.39 K/mm3 (4.00-11.30)
[2024-12-14 04:07] LABS: Anion Gap 7 mmol/L (3-11); Blood Urea Nitrogen 15 mg/dL (8-24); Bun/Creatinine Ratio 17.6 (12.0-20.0); CO2, Blood 29 mmol/L (21-32); Calcium, Blood 7.9 mg/dL (8.5-10.1); Chloride, Blood 107 mmol/L (98-108); Creatinine, Blood 0.85 mg/dL (0.60-1.20); Glomerular Filtration Rate 105 (60-); Glucose, Blood 142 mg/dL (70-99); Phosphorus, Blood 2.8 mg/dL (2.5-4.9); Potassium, Blood 3.4 mmol/L (3.5-5.5); Sodium, Blood 140 mmol/L (136-145)
[2024-12-14] MEDS ORDERED: Potassium Chloride 40 MEQ in NS 250 ML IV ONE (05:00)
--- NOTE | 2024-12-14 05:53 | NUR ---
SHIFT SUMM: VENT SETTINGS HAVE REMAINED UNCHANGED EXCEPT F102 WAS BUMPED UP TO 65% BECAUSE PT'S SPO2 WAS CONSISTENT AT 89% AND NOW BACK TO 90-94%. HR REMAINED UNCHANGED IN 60-70'S.PT CONTINUES TO RESPOND TO PAINFUL AND VERBAL STIMULI. PT HAS NEEDED SOME IV ATIVAN AND FENTANYL FOR AGITATION WITH VENT THAT WAS GIVEN BY MIKEY RAYA. PROPOFOL REMAINS AT 30 MCG/KG/MIN W/FENTANYL AT 50 MCG/HR. PT ALSO HAVE KCL INFUSING. PATENT PG AND PICC LINE STILL IN PLACE AND ROSS DRAINING TO GRAVITY. PT CONTINUES WRIST RESTRAINTS TO PREVENT EXTUBATING AND PULLING AT LINES. OG TUBE IS PATENT AND RUNS AT 30ML/HR. PT HAS NOT HAD A BM THIS SHIFT. PT RECIEVED A BED BATH THIS SHIFT AND CATH CARE COMPLETED.SKIN CLEAN,DRY AND INTACT.BED LOW AND LOCKED
--- NOTE | 2024-12-14 19:32 | NUR ---
SHIFT SUMMARY: NEURO: PATIENT RESPONSIVE TO VERBAL STIMULI (ATTEMPTS TO OPEN EYES WITH COMMAND). MOVEMENT IN ALL 4 EXTREMITIES. PATIENT TOLERATED A SEDATION INTERRUPTION FOR ABOUT 30 MINUTES TODAY WITH AT THE BEDSIDE. PATIENT CALM AND COOPERATIVE THROUGHOUT THE INTERRUPTION. UTILIZED SEDATION ADJUNCTS THROUGHOUT THE SHIFT TO MAINTAIN TOLERANCE OF ETT. ENDED THE SHIFT WITH PROPOFOL AT 30 MCG/KG/MIN. RESPIRATORY: THIS MORNING, PEEP WAS INCREASED TO AID IN DECREASING FIO2. BY THE END OF SHIFT, PATIENT'S FI02 DOWN TO 50% WITH SPO2 >92%. THICK WHITE SPUTUM FROM ETT. SETTINGS AT THE END OF SHIFT: AC/VC 12/500/12/50%. CARDIAC: VITALS STABLE WITH MAPS >65. HR IN THE 70-80S. PATIENT DENIED CHEST PAIN/PRESSURE. GI/: ROSS IN PLACE AND DRAINING FREELY DARK YELLOW URINE. ABOUT 1200 ML OUT DURING DAY SHIFT. RECTAL TUBE PLACE THIS EVENING RELATED TO LARGE AMOUNTS OF LIQUID STOOL. AFTER PLACEMENT, ABOUT 500 ML OF STOOL IN THE COLLECTION BAG. TUBE FEED VITAL HIGH PROTEIN CONTINUES AT 30 ML/HR. PSYCHSOCIAL: PATIENT CALM AND COOPERATIVE. DURING SEDATION INTERRUPTION, PATIENT NODDED YES THAT HE IS FEELING BETTER WHEN THIS RN ASKED. PATIENT RESPONDS WELL TO HIS AT THE BEDSIDE. PATIENT'S MOTHER RESPECTED THE BOUNDARIES SET AND VISITED AT 1200 AND STAYED FOR ABOUT 45 MINUTES.
[2024-12-15] VITALS (39 sets, daily range): BP systolic 104–200; BP diastolic 63–133
[2024-12-15 04:23] LABS: BASOPHILS ABSOLUTE AUTO 0.02 K/mm3 (0.00-0.23); BASOPHILS PERCENT AUTO 0 % (0-2); EOSINOPHILS ABSOLUTE AUTO 0.09 K/mm3 (0.00-0.68); EOSINOPHILS PERCENT AUTO 1 % (0-6); Hematocrit 29.5 % (37.0-53.0); Hemoglobin 10.5 g/dL (13.5-17.5); IMMATURE GRAN ABSOLUTE AUTO 0.24 K/mm3 (0.00-0.10); IMMATURE GRAN PERCENT AUTO 4 % (0-1); LYMPHOCYTES ABSOLUTE AUTO 0.99 K/mm3 (0.84-5.20); LYMPHOCYTES PERCENT AUTO 16 % (21-46); MONOCYTES ABSOLUTE AUTO 1.06 K/mm3 (0.16-1.47); MONOCYTES PERCENT AUTO 17 % (4-13); Mean Corpuscular HGB 32.1 pg (26.0-34.0); Mean Corpuscular HGB Conc 35.6 g/dL (31.5-36.5); Mean Corpuscular Volume 90 fL (80-100); Mean Platelet Volume 9.2 fL (9.1-12.4); NEUTROPHILS ABSOLUTE AUTO 3.83 K/mm3 (1.96-9.15); NEUTROPHILS PERCENT AUTO 62 % (41-73); Platelet Count 222 K/mm3 (150-400); RDW Coefficient Variation 12.6 % (11.7-14.2); RDW Standard Deviation 41.8 fL (35.1-46.3); Red Blood Cell Count 3.27 M/mm3 (4.30-5.90); White Blood Cell Count 6.23 K/mm3 (4.00-11.30)
[2024-12-15 04:41] LABS: Albumin, Blood 2.1 g/dL (3.4-5.0); Albumin/Globulin Ratio 0.5 (0.8-1.8); Bilirubin, Total 0.6 mg/dL (0.1-1.0); Bun/Creatinine Ratio 19.3 (12.0-20.0); Calcium, Blood 7.7 mg/dL (8.5-10.1); Creatinine, Blood 0.83 mg/dL (0.60-1.20); Globulin, Blood 4.4 g/dL (2.2-4.0); Potassium, Blood 3.2 mmol/L (3.5-5.5); Total Protein, Blood 6.5 g/dL (6.4-8.2)
[2024-12-15] MEDS ORDERED: Potassium Chloride 40 MEQ in NS 250 ML IV ONE (05:30)
--- NOTE | 2024-12-15 06:39 | NUR ---
SHIFT SUMMARY: PATIENT IS INTUBATED AND SEDATED. PATIENT RESPOND TO VERBAL STIMULI AND IS OCCASSIONAL SEEN TO BE ALERT IN ROOM. UNABLE TO ASSESS FOR VOICE HOWEVER THE PATIENT WILL NOD HEAD APPROPRIATELY TO QUESTIONS. FOLLOW COMMANDS. RASS IS HOLDING AT A -2/-3 WITH MOMENTS OF AGITIATION REQUIRING PRN MEDICATIONS. CPOT TRENDS LOW. PUPILS ARE EQUAL AND BILATERAL, 3 MM. MOVES ALL EXTREMITIES WITH POSITIVE PULSE, MOTOR, AND SENSATION. SOFT RESTRAINTS BUE. PAIN CONTROLED WITH FENTANYL GTT AND PRN IV PUSH FENTANYL. PROPOFOL FOR SEDATION. ON VC 12/500/12/50%. CLEAR OVER DIMINSIHED LS. SCANT INLINE, WHITE AND FROTHY. SMALL TO LARGE ORAL SECRETIONS, CLEAR-WHITE AND THIN. INTACT GAG AND COUGH. MONITOR SHOWS NSR-ST DEPENDENT ON LEVEL OF AGITATION. 2/2 PULSES WITH NO EDEMA. VSS. MAX TEMP 100. BRISK CAP REFILL. ABDOMEN IS SNT, ACTIVE BT. RECTAL TUBE IN PLACE WITH CONSTANT LOW OUTPUT. ROSS IS PATENT WITH ADEQUATE UOP. SKIN IS BLANCHABLE AND INTACT. PICC IS PATENT, ASIDE FROM WHITE PORT WILL NOT DRAW AND IS SLOW TO PUSH. NEW DRESSING APPLIED. NO COMPLICATIONS OR EVENTS TO REPORT.
--- NOTE | 2024-12-15 08:30 | NUR ---
[place] of care: Quite agitated this morning - RASS +2 to +3 - increased propofol to 50 & discussed with Dr. Kennedy - plans to start precedex gtt. Does follow commands & opens eyes to voice but is otherwise agitated, pulling at restraints, attempting to get to ETT, wiggling in bed non-stop. In NSR in 70s, SBP 130-[address], #7.5 at 25 cm. On ACVC 12/500/12/50%. Clear lung sounds but copious oral secretions. OGT, rectal tube, & amador cath secure & in place. TF infusing at goal. PICC & powerglide. KCL replacement infusing. Will continue to monitor.
[2024-12-15] MEDS ORDERED: dexmedeTOMIDine 100 ML IV SCH (09:20)
--- NOTE | 2024-12-15 18:05 | NUR ---
Shift summary: Had some difficulties getting sedation optimized this morning. He is currently on 25 mcgs/kg/min of propofol, 50 mcgs/hr of fentanyl, & 0.7 mcg/kg/hr of precedex, with RASS -2. Arouses to verbal stimuli & localizes to pain. Pupils 3/brisk. SB 57-60. SBP 115-130 for most of the day. Able to wean vent settings slightly - he is on 45% FiO2 & 10 of peep now. Rectal tube, amador, and OGT remain in place. TF infusing at goal. PICC & powerglide. Will continue to monitor.
[2024-12-16] VITALS (31 sets, daily range): BP systolic 115–166; BP diastolic 62–98
[2024-12-16] MEDS ORDERED: Acetaminophen 500 MG Tab PT PRN (00:25)
[2024-12-16] MEDS ORDERED: Acetaminophen 160MG / 5ML 10.15 UDC PT PRN (00:35)
[2024-12-16 04:20] LABS: BASOPHILS ABSOLUTE AUTO 0.02 K/mm3 (0.00-0.23); BASOPHILS PERCENT AUTO 0 % (0-2); EOSINOPHILS ABSOLUTE AUTO 0.13 K/mm3 (0.00-0.68); EOSINOPHILS PERCENT AUTO 2 % (0-6); Hematocrit 26.5 % (37.0-53.0); Hemoglobin 9.6 g/dL (13.5-17.5); IMMATURE GRAN ABSOLUTE AUTO 0.17 K/mm3 (0.00-0.10); IMMATURE GRAN PERCENT AUTO 3 % (0-1); LYMPHOCYTES ABSOLUTE AUTO 0.96 K/mm3 (0.84-5.20); LYMPHOCYTES PERCENT AUTO 15 % (21-46); MONOCYTES ABSOLUTE AUTO 0.88 K/mm3 (0.16-1.47); MONOCYTES PERCENT AUTO 13 % (4-13); Mean Corpuscular HGB 33.1 pg (26.0-34.0); Mean Corpuscular HGB Conc 36.2 g/dL (31.5-36.5); Mean Corpuscular Volume 91 fL (80-100); Mean Platelet Volume 9.1 fL (9.1-12.4); NEUTROPHILS ABSOLUTE AUTO 4.42 K/mm3 (1.96-9.15); NEUTROPHILS PERCENT AUTO 67 % (41-73); Platelet Count 219 K/mm3 (150-400); RDW Coefficient Variation 12.8 % (11.7-14.2); RDW Standard Deviation 42.7 fL (35.1-46.3); White Blood Cell Count 6.58 K/mm3 (4.00-11.30)
[2024-12-16 04:46] LABS: Albumin, Blood 1.9 g/dL (3.4-5.0); Anion Gap 8 mmol/L (3-11); Blood Urea Nitrogen 14 mg/dL (8-24); Bun/Creatinine Ratio 16.7 (12.0-20.0); CO2, Blood 28 mmol/L (21-32); Calcium, Blood 7.1 mg/dL (8.5-10.1); Chloride, Blood 105 mmol/L (98-108); Creatinine, Blood 0.84 mg/dL (0.60-1.20); Glomerular Filtration Rate 105 (60-); Glucose, Blood 110 mg/dL (70-99); Phosphorus, Blood 2.6 mg/dL (2.5-4.9); Potassium, Blood 3.5 mmol/L (3.5-5.5); Sodium, Blood 137 mmol/L (136-145)
[2024-12-16] MEDS ORDERED: Lansoprazole 15 MG TAB.RAP.DR PT SCH (06:00)
--- NOTE | 2024-12-16 07:22 | NUR ---
SHIFT SUMMARY: PATIENT IS SEDATED AND INTUBATED. MAINTAINING A RASS OF -2. PUPILS ARE EQUAL AND BRISK. NEUROMUSCULAR INTAKE X4 EXTREMITIES AND FOLLOWING COMMANDS. MONITOR SHOWS NSR. VSS. 2/2 PULSES AND NO EDEMA. TMAX 100.6, TYLENOL GIVEN. 7.5 ETT, 25 THE TEETH. VC R12/V500/P10/[id number]. CLEAR OVER DIMINISHED. SCANT INLINE SECRETIONS, LARGE AMOUNT OF ORAL SECRETIONS. TF RUNNING AT GOAL, MILDLY DISTENDED ABD, HYPOACTIVE BT AND RECTAL TUBE IN PLACE. ROSS IS PATENT AND HANGING TO GRAVITY. SKIN IS BLANCHABLE AND INTAKE. RIGHT ARM PICC AND MIDLINE IN THE LEFT ARM. PICC IS POSITIONAL. MIDLINE WILL FLUSH BUT NOT DRAW. NO EVENTS OR COMPLICATIONS TO REPORT.
[2024-12-16] MEDS ORDERED: Potassium Chl 10MEQ/Water100ML 100 ML IV ONE (09:40)
--- NOTE | 2024-12-16 14:01 | NUR ---
Pt. is awake in bed. Spouse is at bedside and welcomed my visit. Pt. is pleasant and displays a pretty quick sense of humor. Spouse verbaslizes that he still feels weak, but otherwise is improving. Facilitated a short life review and prayed with the Pt. Both Pt. and spouse verbalize gratitude for the spiritual care visit.
--- NOTE | 2024-12-16 14:36 | NUR ---
ASSUMPTION OF CARE ASSUME CARE OF PT AT 0700 WITH KLARISSA RAYA AND RECEIVED BEDSIDE REPORT FROM PATRICK RAYA. PT IS INTUBATED AND SEDATED WITH PREDECEX INFUSING AT 0.3, PROPOFOL AT 35, AND FENTANYL AT 50. PT IS ALERT AND ABLE TO FOLLOW COMMANDS. VENT SETTINGS AT AC/VC 12/500/10 WITH FIO2 OF 45%. CONTINUOUS CARDIAC MONITORING IN PLACE. HR 70S-80S. SBP 130S. ROSS AND RECTAL TUBE PATENT AND DRAINING TO GRAVITY. OG TUBE PATENT AND SECURE. SEE SHIFT ASSESSEMENT FOR MORE DETAILS.
--- NOTE | 2024-12-16 18:12 | NUR ---
END OF SHIFT SUMMARY. PT IS A&O x4, ABLE TO FOLLOW COMMANDS AND MAKE NEEDS KNOWN. FEBRILE OF 99.5 WITH ORAL THERMOMETER. CONTINUOUS CARDIAC MONITORING IN PLACE SHOWING SR WITH HR IN 80'S. PT WAS EXTUBATED AND PLACED ON AIRVO AFTER TRYING NC AND NON-REBREATHER. AIRVO SETTINGS ARE 40 LPM AND FIO2 50%. PT HAS MALE PUREWICK IN PLACE, USES BEDPAN FOR BM. PT HAS BLOODLY LOOSE STOOL, PT REPORTS HX OF HEMORROIDS THAT CAN RUPTURE. PT HAS REDDNESS ON CHEEKS FROM VENT CADEN, EXUDERM WAS APPLIED. SALINE LOCKED. WILL CONTINUE TO MONITOR AND REPORT TO ONCOMING RN.
[2024-12-17] VITALS (9 sets, daily range): BP systolic 119–160; BP diastolic 67–90
[2024-12-17 03:41] LABS: BASOPHILS ABSOLUTE AUTO 0.07 K/mm3 (0.00-0.23); BASOPHILS PERCENT AUTO 1 % (0-2); EOSINOPHILS PERCENT AUTO 1 % (0-6); Hematocrit 29.5 % (37.0-53.0); Hemoglobin 10.1 g/dL (13.5-17.5); IMMATURE GRAN ABSOLUTE AUTO 0.19 K/mm3 (0.00-0.10); IMMATURE GRAN PERCENT AUTO 3 % (0-1); LYMPHOCYTES PERCENT AUTO 20 % (21-46); MONOCYTES ABSOLUTE AUTO 0.95 K/mm3 (0.16-1.47); MONOCYTES PERCENT AUTO 13 % (4-13); Mean Corpuscular HGB 30.4 pg (26.0-34.0); Mean Corpuscular HGB Conc 34.2 g/dL (31.5-36.5); Mean Corpuscular Volume 89 fL (80-100); Mean Platelet Volume 8.9 fL (9.1-12.4); NEUTROPHILS ABSOLUTE AUTO 4.69 K/mm3 (1.96-9.15); NEUTROPHILS PERCENT AUTO 63 % (41-73); Platelet Count 280 K/mm3 (150-400); RDW Coefficient Variation 12.4 % (11.7-14.2); Red Blood Cell Count 3.32 M/mm3 (4.30-5.90)
[2024-12-17 04:02] LABS: Albumin, Blood 2.4 g/dL (3.4-5.0); Anion Gap 9 mmol/L (3-11); Blood Urea Nitrogen 14 mg/dL (8-24); Bun/Creatinine Ratio 14.5 (12.0-20.0); CO2, Blood 26 mmol/L (21-32); Calcium, Blood 8.4 mg/dL (8.5-10.1); Chloride, Blood 110 mmol/L (98-108); Creatinine, Blood 0.96 mg/dL (0.60-1.20); Glomerular Filtration Rate 95 (60-); Glucose, Blood 90 mg/dL (70-99); Phosphorus, Blood 2.9 mg/dL (2.5-4.9); Potassium, Blood 3.2 mmol/L (3.5-5.5); Sodium, Blood 142 mmol/L (136-145)
[2024-12-17] MEDS ORDERED: Potassium Chloride 40 MEQ in NS 250 ML IV ONE (04:45)
--- NOTE | 2024-12-17 05:46 | NUR ---
SHIFT SUMMARY PATIENT SLEPT OFF AND ON THROUGH. PATEINT STOOD WITH WALK AND USED BEDSIDE COMMODE. PATEINT SAT IN RECLINER WHILE NURSE CHANGED LINES IN BED. PATEINT STATED " THIS FEELS SO GOOD TO BE OUT OF THAT BED". PATIENT HAD LARGE LIQUID BM ON SHIFT X1. PATIENT HAS MALE PUREWICK IN PLACE WITH DEPEND BRIEF ON. PATIENT IS A&O X4. PATIENT USES CALL LIGHT TO MAKE NEEDS KNOWN. HR IN THE 70'S AND SBP 140-150'S. PATIENT IN ON AIRVO 35L AND 40%. PATIENT HAS PICC LINE IN LEFT UPPER ARM AND POWERGLIDE IN RIGTH UPPER ARM. PATIENT MOVES HIMSELF IN BED BUT WILL CALL FOR HELP IN MOVING CORDS AROUND. CALL LIGTH WITHIN REACH.
--- NOTE | 2024-12-17 07:34 | NUR ---
ASSUMPTION OF CARE ASSUME CARE OF PT AT 0700 WITH KLARISSA RAYA, RECEIVED REPORT FROM JC RAYA. PT HAS CONTINUOUS CARDIAC MONITORING IN PLACE SHOWING SR, HR IN THE 60'S. SBP IS 120'S WITH A MAP > 60. PT IS ON AIRVO WITH 35 LPM AND FIO2 40%, WITH SPO2 > 92%. PT IS A&O AND ABLE TO MAKE NEEDS KNOWN. SEE FULL SHIFT ASSESSMENT FOR DETAILS.
[2024-12-17] MEDS ORDERED: Docusate Sodium/Senna 1 Tab PO PRN (08:20)
[2024-12-17] MEDS ORDERED: Fluticasone 0.05% Nasal Spray SCH (09:00)
[2024-12-17] MEDS ORDERED: Thiamine HCl 100 MG Tab PO SCH (09:00)
[2024-12-17] MEDS ORDERED: Protein Supplement 30 ML UD PO SCH (09:00)
[2024-12-17] MEDS ORDERED: Multivitamins 1 Tab PO SCH (09:00)
[2024-12-17] MEDS ORDERED: Insulin Human Lispro 100 Units/ML 3ML Syringe SC SCH (11:30)
--- NOTE | 2024-12-17 18:04 | NUR ---
END OF SHIFT SUMMARY PT HAD NO ACUTE CHANGES THROUGHOUT THE SHIFT. PT A&O x4 AND ABLE TO MAKE NEEDS KNOWN AND IS AFEBRILE. CONTINUOUS CARDIAC MONITORING IN PLACE SHOWING HR IN 70'S, SBP 130'S-150'S. PT IS ON HIGH FLOW NC AT 6L WHILE AWAKE AND 7L WHILE SLEEPING. PT USES THE URINAL AND IS 1 PERSON TO THE TOILET FOR BM. HELD LONG ACTING INSLUIN PER DR. LIU AND WILL REASSESS AFTER TOMORROW MORNINGS BLOOD SUGAR. SPEECH THERAPY EVALUATED PT AND UPGRADED DIET TO CONSISTANT CARB. PT HAD DECREASED APPETITE. WILL CONTINUE TO MONITOR AND REPORT TO ONCOMING SHIFT.
[2024-12-18] VITALS: BP 156/86
[2024-12-18 03:41] LABS: BASOPHILS ABSOLUTE AUTO 0.05 K/mm3 (0.00-0.23); BASOPHILS PERCENT AUTO 1 % (0-2); EOSINOPHILS PERCENT AUTO 1 % (0-6); Hematocrit 29.7 % (37.0-53.0); Hemoglobin 10.3 g/dL (13.5-17.5); IMMATURE GRAN ABSOLUTE AUTO 0.11 K/mm3 (0.00-0.10); IMMATURE GRAN PERCENT AUTO 1 % (0-1); LYMPHOCYTES ABSOLUTE AUTO 1.58 K/mm3 (0.84-5.20); LYMPHOCYTES PERCENT AUTO 21 % (21-46); MONOCYTES ABSOLUTE AUTO 0.85 K/mm3 (0.16-1.47); MONOCYTES PERCENT AUTO 11 % (4-13); Mean Corpuscular HGB 30.6 pg (26.0-34.0); Mean Corpuscular HGB Conc 34.7 g/dL (31.5-36.5); Mean Corpuscular Volume 88 fL (80-100); Mean Platelet Volume 8.4 fL (9.1-12.4); NEUTROPHILS PERCENT AUTO 65 % (41-73); Platelet Count 248 K/mm3 (150-400); RDW Coefficient Variation 12.4 % (11.7-14.2); RDW Standard Deviation 39.5 fL (35.1-46.3); Red Blood Cell Count 3.37 M/mm3 (4.30-5.90); White Blood Cell Count 7.59 K/mm3 (4.00-11.30)
[2024-12-18 03:51] VITALS: BP 150/87
[2024-12-18 04:00] VITALS: BP 143/71
[2024-12-18 04:01] LABS: Albumin, Blood 2.5 g/dL (3.4-5.0); Anion Gap 8 mmol/L (3-11); Blood Urea Nitrogen 14 mg/dL (8-24); Bun/Creatinine Ratio 14.8 (12.0-20.0); CO2, Blood 27 mmol/L (21-32); Calcium, Blood 8.3 mg/dL (8.5-10.1); Chloride, Blood 108 mmol/L (98-108); Creatinine, Blood 0.95 mg/dL (0.60-1.20); Glomerular Filtration Rate 96 (60-); Glucose, Blood 95 mg/dL (70-99); Phosphorus, Blood 3.3 mg/dL (2.5-4.9); Potassium, Blood 3.4 mmol/L (3.5-5.5); Sodium, Blood 140 mmol/L (136-145)
[2024-12-18] MEDS ORDERED: Omeprazole 20 MG CapCR PO SCH (06:00)
--- NOTE | 2024-12-18 06:14 | NUR ---
SHIFT SUMMARY PATIENT SLEPT MOST OF NIGHT. PATIENT IN RECLINER THIS MORNING. PATIENT WALKING AROUND ROOM MORE WITH STANDBY ASSIST (WHEN LINENS NEEDED TO BE CHANGED). PATIENT DOES USE CALL LIGHT SOMETIMES BUT THIS NURSE FOUND HIM STAND AND SITTING AT END OF BED EVEN THOUGH SIDE RAIL WERE UP AND CALL LIGHT WAS IN REACH. NURSE REMINDING PATIENT THAT HE NEEDS TO CALL FOR HELP WHEN GETTINGOUT OF BED. PATIENT AGREED BUT STILL DOES NOT USE CALL LIGHT ALL THE TIME. A&O X4, SBP 140-150'S AND HR IN 80'S. PATIENT ON 5L OF OXYGEN VIA NC. PATIENT USES BEDSIDE URINAL. PATIENT HAS PICC LINE IN RIGHT UPPER ARM AND POWERGLIDE IN LEFT UPPER ARM BOTH SALINE LOCKED. CALL LIGHT WITHIN REACH.
--- NOTE | 2024-12-18 07:18 | NUR ---
CARE ASSUMPTION SUMMARY DURING REPORT FROM NIGHTSHIFT NURSE, PT WAS ASLEEP AND RESTING IN BED. PT IS FLU A POSITIVE, WITH PNEUMONIA, AND IS CURRENTLY SATING AT 95% ON 5L HIGHFLOW NASAL CANNULA. PER REPORT PT WAS EXTUBATED ON December AND HAS BEEN TOLERATING IT WELL. PER TELE MONITOR PT IS CURRENTLY IN SINUS RHYTHM IN THE 60'S - 70'S. PT IS CURRENTLY PCU STATUS.
[2024-12-18] MEDS ORDERED: Potassium Chloride 20 MEQ TabCR PO ONE (07:20)
[2024-12-18 08:17] VITALS: BP 157/83
[2024-12-18] MEDS ORDERED: Furosemide 10 MG / ML 2ML Vial IV ONE (10:20)
--- NOTE | 2024-12-18 12:40 | NUR ---
AFTERNOON ASSESSMENT PT HAS BEEN SITTING ON THE SIDE OF BED TALKING TO FAMILY THIS LATE MORNING/EARLY AFTERNOON. PT RECEIVED A DOSE OF LASIX VIA IV AND HAS VOIDED SEVERAL TIMES SINCE. PT WAS SWITCHED TO A HIGHFLOW NASAL CANNUAL WITH HUMIDIFIER AT 5L. PT RECEIVED A DOSE OF HUMALOG INSULIN BEFORE LUNCH AND WAS SITTING ON THE EDGE OF THE BED EATING AFTER RECEIVING DOSE.
[2024-12-18 17:50] VITALS: BP 167/83
--- NOTE | 2024-12-18 18:09 | NUR ---
SHIFT SUMMARY PT HAS BEEN ALERT AND ORIENTED X 4 TODAY AND IS COOPERATIVE WITH CARE. PT HAS BEEN ON 5-6L HIGHFLOW NASAL CANNULA FOR A MAJORITY OF THE SHIFT UNTIL ROUGHLY 1800 WHEN HE WAS SWITCHED TO ROOM AIR, SATING AT 90-92%. BLOOD PRESSURE HAS BEEN WNL THROUGHOUT SHIFT AND HR IN SINUS RHYTHM BETWEEN 70'S-80'S. LUNG SOUNDS HAVE HAD MINOR INSPIRATORY CRACKLES MOSTLY IN RUL, CLEAR IN ANGE AND SLIGHTLY DIMINISHED IN BASES. PT IS STILL ON PRECAUTIONS FOR INFLUENZA A BUT HAS BEEN AFEBRILE THROUGHOUT SHIFT. PT HAS TYPE 2 DM AND RECEIVED ONE DOSE OF 2 UNITS OF HUMALOG AT LUNCH TIME. PT IS UNDERSTANDING OF DIET AND HAS BEEN MINDFUL OF THE DECISIONS HE MAKES WITH HIS FOOD INTAKE. PT HAD A POWERGLIDE IN THE CATIA THAT HAS BEEN PULLED AND D/C THIS SHIFT. HE CURRENTLY HAS A PICC IN THE ALBERTO THAT HAS BEEN ACCESSED ONCE THIS SHIFT WHEN RECEIVING A ONE TIME DOSE OF LASIX. PT IS ABLE TO AMBULATE INDEPENDENTLY IN ROOM AND USES URINAL WHEN NEEDED. PT HAD ONE SMALL BM THIS SHIFT. PT IS CURRENTLY SITTING UP IN BED AND IN NO IMMEDIATE DISTRESS. WILL REPORT TO HEALTH INSPECTOR NURSE.
[2024-12-18 19:55] VITALS: BP 163/98
--- NOTE | 2024-12-18 19:55 | NUR ---
ASSUMPTION OF CARE: ASSUMED CARE OF PT AND PT IS UP IN CHAIR ON 2.5 L NC AND IND IN ROOM. PT IS ON TELE NSR W/HR IN THE 80'S-90'S.SPO2 BETWEEN 94-96%. PT REPORTS FEELING WELL AND NO PAIN. PT HAS A PATENT PICC LINE TO THE ALBERTO. PT HAS BEEN USING URINAL IND. PT'S LUNG SOUNDS ARE CLEAR IN THE UPPER AND DIM IN THE LOWER BASES. PT HAS BEEN TOLERATING CLEAR LIQUIDS WELL. PT HAS AN OCCASIONAL DRY COUGH.PT REMAINS IN DROPLET PREC FOR FLU A+.NO SKIN ISSUES AND PT IS A&OX4 W/NO COMPLAINTS. CALL LIGHT IN REACH.
[2024-12-18] MEDS ORDERED: TraZODone HCl 50 MG Tab PO SCH (21:00)
[2024-12-19] MEDS ORDERED: Benzonatate 100 MG Cap PO PRN (02:25)
[2024-12-19] MEDS ORDERED: Ipratropium/Albuterol SulF 2.5-0.5MG/3 ML Amp INH PRN (02:25)
[2024-12-19 02:37] VITALS: BP 148/69
[2024-12-19 04:14] LABS: Bun/Creatinine Ratio 18.9 (12.0-20.0); Calcium, Blood 8.9 mg/dL (8.5-10.1); Creatinine, Blood 1.06 mg/dL (0.60-1.20); Potassium, Blood 3.5 mmol/L (3.5-5.5)
--- NOTE | 2024-12-19 05:29 | NUR ---
SHIFT SUMMARY: PT REMAINS ALERT AND ORIENTED T/O THE SHIFT. ABLE TO REST MINIMALLY T/O THE NIGHT. ON AND OFF NC FOR COMFORT AND PERIODS OF DESATURATION. RA-3L. SATS 88-92%, DENIES SOB. INSPECTORS AND REGULATORY OFFICERS IN PLACE, SR WITH HR 80'S. SBP 140-160'S. 6 BEAT RUN OF VTACH NOTED ON MONITOR, ASYMPTOMATIC. DENIES CP. TOLERATING PO INTAKE. PICC TO ALBERTO PATENT AND SALINE LOCKED. VOIDING INTO TOILET IND. NO BM THIS SHIFT. IND IN ROOM. BED LOW AND LOCKED, CALL LIGHT IN REACH.
[2024-12-19] MEDS ORDERED: Potassium Chloride 20 MEQ TabCR PO ONE (07:15)
[2024-12-19] MEDS ORDERED: MetFORMIN HCl 500 mg PO SCH (08:00)
[2024-12-19 08:14] VITALS: BP 139/84
--- NOTE | 2024-12-19 08:40 | NUR ---
CARE ASSUMPTION PT WAS IN HIS ROOM SITTING IN THE CHAIR DURING REPORT. HE IS STILL ALERT AND ORIENTED X4 AND ABLE TO MAKE HIS NEEDS KNOWN. PT IS STILL ON ROOM AIR WITH AN O2 SATURATION OF 93%. PT'S VITAL SIGNS WERE WITHIN NORMAL LIMITS AND HAD A CBG READING OF 154 PER NIGHTSHIFT NURSE AND DURING MORNING MEDICATIONS RECEIVED A DOSE OF METFORMIN. DR LIU WAS IN THE ROOM DURING MEDICATION ADMINISTRATION AND AGREED TO KEEP HIM ON METFORMIN AT THIS TIME. PT IS CURRENTLY MEDICAL STATUS BUT DR LIU BELIEVES THAT IF BREATHING TRAIL GOES WELL HE COULD GO HOME LATER TODAY.
[2024-12-19] MEDS ORDERED: Losartan Potassium 25 MG Tab PO SCH (09:00)
[2024-12-19 09:03] LABS: Influenza A, PCR POSITIVE (NEGATIVE)
--- NOTE | 2024-12-19 10:41 | NUR ---
PT TRANSFERED FROM ICU 8 TO ROOM 362. REPORT WAS RECEIVED FROM ICU NURSE AND THIS NURSE ASSUMED CARE OF PT AROUND 1000. RT NOTED TO BE IN ROOM WITH PT DOING HOME O2 EVAL.
[2024-12-19 12:00] VITALS: BP 148/79
[2024-12-19] MEDS ORDERED: Tessalon200 MG PO (12:16)
[2024-12-19] MEDS ORDERED: LOSARTAN POTASS25 MG PO (12:17)
[2024-12-19] MEDS ORDERED: FLUT.05NI (12:17)
[2024-12-19] MEDS ORDERED: METF500 PO (12:18)
[2024-12-19] MEDS ORDERED: TRAZ50 PO (12:19)
--- NOTE | 2024-12-19 16:22 | NUR ---
dc summary pt dc this shift dc instruction gone over with pt and pt whom stated understanding. pt oxygen was dropped of by bree. pt declined to have staff walk out to private vehicle but this nurse did assist pt to elevator and steady gait was observed.
== END 2024-12-19 16:11 | disposition home or self-care (01) | DRG 207 ==
LOC: ER 14:27 → ICUE 18:28 → ERHOLD 18:28 → ICUE 20:13 → MEDS 12-19 09:39
PROVIDERS: Emergency Medicine; Internal Medicine; Internal Medicine Critical Care Medicine; Nurse Practitioner Acute Care; Student in an Organized Health Care Education/Training Program; ADMIT Internal Medicine
PROC: 5A0935A Assistance with Respiratory Ventilation, Less than 24 Consecutive Hours, High Flow/Velocity Cannula (ICD-10-PCS; 2024-12-06)
PROC: 4A133R1 Monitoring of Arterial Saturation, Peripheral, Percutaneous Approach (ICD-10-PCS; 2024-12-06)
PROC: 5A1955Z Respiratory Ventilation, Greater than 96 Consecutive Hours (ICD-10-PCS; principal; 2024-12-08)
PROC: 0BH17EZ Insertion of Endotracheal Airway into Trachea, Via Natural or Artificial Opening (ICD-10-PCS; 2024-12-08)
PROC: 5A09357 Assistance with Respiratory Ventilation, Less than 24 Consecutive Hours, Continuous Positive Airway Pressure (ICD-10-PCS; 2024-12-08)
PROC: 02HV33Z Insertion of Infusion Device into Superior Vena Cava, Percutaneous Approach (ICD-10-PCS; 2024-12-08)
PROC: 02H633Z Insertion of Infusion Device into Right Atrium, Percutaneous Approach (ICD-10-PCS; 2024-12-14)
DX: J10.00 Influenza due to other identified influenza virus with unspecified type of pneumonia (principal); J96.01 Acute respiratory failure with hypoxia; E87.1 Hypo-osmolality and hyponatremia; E11.65 Type 2 diabetes mellitus with hyperglycemia; E87.6 Hypokalemia; I10 Essential (primary) hypertension; D69.6 Thrombocytopenia, unspecified; K76.0 Fatty (change of) liver, not elsewhere classified; E78.1 Pure hyperglyceridemia; Z87.891 Personal history of nicotine dependence; Z79.4 Long term (current) use of insulin; Z79.84 Long term (current) use of oral hypoglycemic drugs; Z91.199 Patient's noncompliance with other medical treatment and regimen due to unspecified reason; Z79.899 Other long term (current) drug therapy
CPT/HCPCS: 0241U; 31500; 36415; 36569; 36600; 51702; 71045; 71260; 80048; 80053; 80069; 80202; 82330; 82803; 82947; 83036; 83605; 83735; 83880; 84100; 84145; 84478; 85025; 87040; 87070; 87205; 92610; 93005; 93010; 94002; 94003; 94640; 94660; 94664; 94667; 94668; 94761; 94762; 99285-25; A9270; C1751; J0696; J1650; J1815; J1938; J2060; J2371; J2470; J2543; J2704; J2919; J3010; J3370; J3480; J7030; J7040; J7050; J7060; Q9967